=== PATIENT | male | born 1990 | race Caucasian/White ===

== ENCOUNTER 2017-09-08 23:29 | Emergency (ER) | payer SELFPAY ==
[~2017-09-08 23:29] MED LIST: AUGM875 PO; LORT5TAB PO; POTA-243 PO; PRED20 PO; Z.0.NO CURRENT MEDS
[2017-09-08] MEDS ORDERED: SODIUM CHLOR 0.9% 1000 ML INJ 1,000 ML IV ONE (23:51)
--- NOTE | 2017-09-08 23:56 | PD ---
HPI Chief Complaint: Cardiac Complaint Time Seen by Provider: 23:51 Travel History International Travel<30 days: No Contact w/Intl Traveler<30days: No History of Present Illness HPI 26-year-old male patient presents to the ER today because he states that he ate a piece of chocolate containing marijuana at 8 PM today and about an hour later started having palpitations and chest discomfort. He states is not going away and that is why he is here. He has been drinking a few beers. He denies any other ingestions. Modifying Factors: None Associated Signs & Symptoms: palpitations and chest discomfort after taking marijuana Risk Factors: None PFSH Past Medical History Diminished Hearing: No Social History Alcohol Use: No Tobacco Use: No Substance Use: No Allergies-Medications (Allergen,Severity, Reaction): Coded Allergies: No Known Allergies (Verified , 05/21/08) Reported Meds & Prescriptions Reported Meds & Active Scripts Active K-Dur (Potassium Chloride) 10 Meq Tabcr 1 Tab PO DAILY Deltasone (Prednisone) 20 Mg Tab 1 Tab PO BID Lortab 5/500 (Acetaminophen/Hydrocodone Bitart) 5 Mg/500 Mg Tab 1 Tab PO Q6HPRN PAIN NEEDED FOR PAIN Augmentin (Amoxicillin/Clavulanate Potassium) 875 Mg Tab 1 Tab PO BID Reported No Current Meds (Miscellaneous Medication) Misc Review of Systems Except as stated in HPI: all other systems reviewed are Neg Physical Exam Narrative GENERAL: Well-developed young male patient currently in mild distress. Awake and oriented 3. SKIN: Focused skin assessment warm/dry. HEAD: Atraumatic. Normocephalic. EYES: Pupils equal and round. No scleral icterus. No injection or drainage. ENT: No nasal bleeding or discharge. Mucous membranes pink and moist. NECK: Trachea midline. No JVD. CARDIOVASCULAR: Fast and regular rhythm. No murmur appreciated. RESPIRATORY: No accessory muscle use. Clear to auscultation. Breath sounds equal bilaterally. GASTROINTESTINAL: Abdomen soft, non-tender, nondistended. Hepatic and splenic margins not palpable. MUSCULOSKELETAL: No obvious deformities. No clubbing. No cyanosis. No edema. NEUROLOGICAL: Awake and alert. No obvious cranial nerve deficits. Motor grossly within normal limits. Normal speech. PSYCHIATRIC: Appropriate mood and affect; insight and judgment normal. Data Data Last Documented VS Vital Signs Date Time Temp Pulse Resp B/P (MAP) Pulse Ox O2 Delivery O2 Flow Rate FiO2 09/09/17 03:13 115 16 146/77 (100) 99 Room Air 09/09/17 01:32 2.00 09/09/17 00:02 97.7 Orders Orders Electrocardiogram (09/08/17 23:51) Complete Blood Count With Diff (09/08/17 23:51) Comprehensive Metabolic Panel (09/08/17 23:51) Iv Access Insert/Monitor (09/08/17 23:51) Ecg Monitoring (09/08/17 23:51) Oximetry (09/08/17 23:51) Lorazepam Inj (Ativan Inj) (09/09/17 00:00) Sodium Chloride 0.9% Flush (Ns Flush) (09/09/17 00:00) Sodium Chlor 0.9% 1000 Ml Inj (Ns 1000 M (09/08/17 23:51) Drug Screen, Random Urine (09/08/17 23:51) Alcohol (Ethanol) (09/08/17 23:51) Labs Laboratory Tests Test 09/08/17 23:55 09/09/17 03:05 White Blood Count 11.6 TH/MM3 Red Blood Count 4.99 MIL/MM3 Hemoglobin 15.9 GM/DL Hematocrit 45.4 % Mean Corpuscular Volume 90.8 FL Mean Corpuscular Hemoglobin 31.8 PG Mean Corpuscular Hemoglobin Concent 35.0 % Red Cell Distribution Width 12.7 % Platelet Count 185 TH/MM3 Mean Platelet Volume 11.0 FL Neutrophils (%) (Auto) 59.4 % Lymphocytes (%) (Auto) 29.3 % Monocytes (%) (Auto) 6.6 % Eosinophils (%) (Auto) 1.3 % Basophils (%) (Auto) 3.4 % Neutrophils # (Auto) 6.8 TH/MM3 Lymphocytes # (Auto) 3.4 TH/MM3 Monocytes # (Auto) 0.8 TH/MM3 Eosinophils # (Auto) 0.2 TH/MM3 Basophils # (Auto) 0.4 TH/MM3 CBC Comment DIFF FINAL Differential Comment Blood Urea Nitrogen 10 MG/DL Creatinine 1.20 MG/DL Random Glucose 148 MG/DL Total Protein 7.6 GM/DL Albumin 4.2 GM/DL Calcium Level 8.9 MG/DL Alkaline Phosphatase 68 U/L Aspartate Amino Transf (AST/SGOT) 20 U/L Alanine Aminotransferase (ALT/SGPT) 31 U/L Total Bilirubin 0.2 MG/DL Sodium Level 141 MEQ/L Potassium Level 3.5 MEQ/L Chloride Level 109 MEQ/L Carbon Dioxide Level 27.0 MEQ/L Anion Gap 5 MEQ/L Estimat Glomerular Filtration Rate 73 ML/MIN Ethyl Alcohol Level 6 MG/DL Urine Opiates Screen NEG Urine Barbiturates Screen NEG Urine Amphetamines Screen NEG Urine Benzodiazepines Screen NEG Urine Cocaine Screen NEG Urine Cannabinoids Screen POS MDM Medical Decision Making Medical Screen Exam Complete: Yes Emergency Medical Condition: Yes Medical Record Reviewed: Yes Interpretation(s) EKG shows sinus tachycardia at a rate of 140 bpm. No signs of acute ST elevations and depressions. Laboratory Tests Test 09/08/17 23:55 09/09/17 03:05 White Blood Count 11.6 TH/MM3 (4.0-11.0) Basophils (%) (Auto) 3.4 % (0.0-2.0) Basophils # (Auto) 0.4 TH/MM3 (0-0.2) Random Glucose 148 MG/DL (74-106) Chloride Level 109 MEQ/L (98-107) Estimat Glomerular Filtration Rate 73 ML/MIN (>89) Ethyl Alcohol Level 6 MG/DL (0-5) Urine Cannabinoids Screen POS (NEG) Differential Diagnosis Coingestions versus dehydration versus electrolyte abnormalities versus dysrhythmias Narrative Course EKG just shows sinus tachycardia but was otherwise fairly unremarkable. Lab work did not indicate significant electrolyte abnormalities. He has marijuana in his system but no other toxicological drugs identified. However, it is quite possible that this is a drug that is not picked up on urine toxicology screen. Patient was given IV fluids and a dose of Ativan in the ER, and his heart rate went down to normal. Patient will be released with follow-up to primary care doctor. Avoid further use of this drug. The plan was discussed with him and he states understanding. Diagnosis Primary Impression: Marijuana use Additional Impression: Tachycardia Disposition: 01 DISCHARGE HOME Condition: Stable Elio Shultz MD September 08, 2017 23:56
[2017-09-09] MEDS ORDERED: LORazepam 2 MG/ML VIAL IV PUSH ONE
[2017-09-09] MEDS ORDERED: SODIUM CHLORIDE 0.9% FLUSH 10 ML FLUSH IVF PRN
[2017-09-09 00:02] VITALS: BP 144/75; PULSE 157; RESP 18; TEMP 97.7; O2SAT 100
[2017-09-09 00:05] VITALS: BP 145/68; PULSE 117; RESP 18; O2SAT 100
[2017-09-09 00:07] VITALS: O2SAT 100
[2017-09-09 00:07] LABS: AUTOMATED NEUTROPHIL # 6.8 TH/MM3 (1.8-7.7); BASOPHIL # 0.4 TH/MM3 (0-0.2); BASOPHIL % 3.4 % (0.0-2.0); EOSINOPHIL # 0.2 TH/MM3 (0-0.4); EOSINOPHIL % 1.3 % (0.0-4.0); HEMATOCRIT 45.4 % (39.0-51.0); HEMOGLOBIN 15.9 GM/DL (13.0-17.0); LYMPH % 29.3 % (9.0-44.0); LYMPHOCYTE # 3.4 TH/MM3 (1.0-4.8); MEAN CELL VOLUME 90.8 FL (80.0-100.0); MEAN CORPUSCULAR HEMOGLOBIN 31.8 PG (27.0-34.0); MONO % 6.6 % (0.0-8.0); MONOCYTE # 0.8 TH/MM3 (0-0.9); NEUT % 59.4 % (16.0-70.0); PLATELET COUNT 185 TH/MM3 (150-450); RED BLOOD COUNT 4.99 MIL/MM3 (4.50-5.90); RED CELL DISTRIBUTION WIDTH 12.7 % (11.6-17.2); WHITE BLOOD COUNT 11.6 TH/MM3 (4.0-11.0)
[2017-09-09 00:16] LABS: CHLORIDE 109 MEQ/L (98-107); SODIUM (NA) 141 MEQ/L (136-145)
[2017-09-09 00:19] LABS: CALCIUM 8.9 MG/DL (8.5-10.1)
[2017-09-09 00:20] LABS: ALBUMIN 4.2 GM/DL (3.4-5.0); BLOOD UREA NITROGEN 10 MG/DL (7-18); GLUCOSE,RANDOM 148 MG/DL (74-106)
[2017-09-09 00:23] LABS: ALT (GPT) 31 U/L (12-78); AST (GOT) 20 U/L (15-37); GLOMERULAR FILTRATION RATE 73 ML/MIN (>89)
[2017-09-09 00:24] LABS: TOTAL BILIRUBIN ADULT 0.2 MG/DL (0.2-1.0); TOTAL PROTEIN 7.6 GM/DL (6.4-8.2)
[2017-09-09 00:25] LABS: ALKALINE PHOSPHATASE 68 U/L (45-117)
[2017-09-09 00:40] VITALS: PULSE 92; RESP 16; O2SAT 100
[2017-09-09 01:32] VITALS: PULSE 85; RESP 18; O2SAT 100
[2017-09-09 03:13] VITALS: BP 146/77; PULSE 115; RESP 16; O2SAT 99
--- NOTE | 2017-09-10 08:30 | EKG ---
Date Performed: 09/08/2017 Time Performed: 23:45:13 PTAGE: 26 years EKG: SINUS TACHYCARDIA, POSSIBLE ATRIAL FLUTTER NONSPECIFIC ST & T-WAVE ABNORMALITY ABNORMAL ECG INTERPRETATION BASED ON A DEFAULT AGE OF 40 YEARS NO PREVIOUS TRACING DOCTOR: Lesa Donato Interpretating Date/Time 09/10/2017 08:28:35
== END 2017-09-09 04:09 | disposition home or self-care (01) ==
LOC: PHED 23:29
DX: F12.90 Cannabis use, unspecified, uncomplicated (principal); R00.0 Tachycardia, unspecified; R94.31 Abnormal electrocardiogram [ECG] [EKG]; Z79.899 Other long term (current) drug therapy
CPT/HCPCS: 80053; 80307; 85025; 93005; 96361; 96374; 99284; J2060; J7030